=== PATIENT | male | born 1995 | race Two or more races ===

== ENCOUNTER 2016-07-25 18:17 | Emergency (ER) | payer OTHER ==
[~2016-07-25 18:17] MED LIST: CEPHALEXIN 500 MG CAP PO SCH; DOXYCYCLINE HYCLATE 100 MG CAP/TAB PO SCH; MUPIROCIN 2% 22 GM OINT TP SCH
[2016-07-25 18:22] VITALS: RESP 16
--- NOTE | 2016-07-25 18:41 | EDPHY ---
H & P Time Seen by Provider: 07/25/16 18:48 HPI/ROS: CHIEF COMPLAINT: Right forearm erythema and swelling HISTORY OF PRESENT ILLNESS: This patient is a 21 year old male with history of IVDA who presents to the Emergency Department with erythema and swelling to his right forearm that he attributes to "shooting up bad dope." He also complains of facial sores that have appeared over the past four days. He also complains of a sore throat and feeling mildly feverish over the past two days. No cough or shortness of breath. No vomiting or diarrhea. 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 He has no interest in going to the [facility] and states that he can detox on his own. REVIEW OF SYSTEMS: A ten point review of systems was performed and is negative with the exception of the items mentioned in the HPI. Past Medical/Surgical History: IVDA Social History: Lives in a room in a trailer. Uses IV meth and heroine. Cigarette smoker. Smoking Status: Current every day smoker Physical Exam: General Appearance: Alert. Vital signs reviewed. Afebrile. Eyes: Pupils equal and round, no conjunctival injection, no discharge. Anicteric. ENT, Mouth: Mucous membranes are dry, no oropharyngeal erythema or edema. Neck: Anterior cervical lymphadenopathy, neck is supple. Respiratory: Lungs are clear to auscultation; no wheezes, rales, or rhonchi. Cardiovascular: Regular rate and rhythm; no murmur, rub, or gallop. Gastrointestinal: Abdomen is thin, soft and nontender, no masses or organomegaly, bowel sounds normal. Skin: Pallor. Multiple scabbed and crusted facial lesions; no vesicles; primarily on the chin. Back: Nontender to palpation over the thoracolumbar spine. No CVAT. Extremities: No lower extremity edema, no calf tenderness or swelling. Right Forearm: Warmth and erythema distal to the antecubital fossa extending intermediate down the right arm. No fluctuance or abscess. Visible puncture guillen antecubital fossa right. No right axillary adenopathy. Neurological: Alert and oriented. Moving all four extremities easily and equally. 5/5 right toll service observer, biceps, triceps. Sensation intact to light touch both arms. Psychiatric: Restless. Cooperative. Constitutional: Initial Vital Signs Temperature (C) 36.8 C 07/25/16 18:19 Heart Rate 82 07/25/16 18:19 Respiratory Rate 16 07/25/16 18:19 Blood Pressure 126/72 H 07/25/16 18:19 O2 Sat (%) 92 07/25/16 18:19 O2 Delivery Mode Room Air Allergies/Adverse Reactions: No Known Allergies Allergy (Unverified 07/25/16 18:22) Home Medications: Medication Instructions Recorded Cephalexin [Keflex] 500 mg PO TID #20 cap 07/25/16 Doxycycline Hyclate [Doxycycline] 100 mg PO BID #13 cap 07/25/16 Mupirocin 2% [Bactroban 2%] 1 christine TOP BID #1 ointtube 07/25/16 Medical Decision Making Procedures: Procedure: Needle aspiration right forearm Right forearm with an area of firmness, not fluctuant. This area was ultrasounded to asses for abscess and it remained unclear whether or not there was a fluid collection. After verbal consent obtained from patient, the area was cleaned and an 18 guage needle was used to attempt aspiration. No purulence obtained. ED Course/Re-evaluation: Needle aspiration of right forearm attempted, no purulence obtained. Right forearm is clearly cellulitic. Doxycycline and Bactrim started, with the first dose provided in the emergency department and prescriptions filled in the hospital pharmacy. I do not think that he is septic. The lesions on his face appeared to be impetigo and he is given medication for this also. He is strongly encouraged to follow up at [facility]. We discussed cessation of IVDA. He tells me that he plans to stop using drugs but refuses all offers for help with rehabilitation. He was given information for narcotics anonymous and for the addiction recovery center. Differential Diagnosis: DDX includes but is not limited to abscess, cellulitis, bacteremia, sepsis, SBE , impetigo, contact dermatitis, and folliculitis. - Data Points Medications Given: Discontinued Medications Cephalexin HCl (Keflex) 500 mg PO EDNOW ONE PRN Reason: Protocol Stop: 07/25/16 19:31 Last Admin: 07/25/16 20:11 Dose: 500 mg Doxycycline Hyclate (Doxycycline Hyclate) 100 mg PO EDNOW ONE PRN Reason: Protocol Stop: 07/25/16 19:31 Last Admin: 07/25/16 20:11 Dose: 100 mg Departure - Departure Disposition: Home, Routine, Self-Care Clinical Impression: Right arm cellulitis, Impetigo Condition: Good Instructions: Cellulitis (ED), Impetigo (DC) Additional Instructions: 1. Take the full course of your antibiotics as prescribed. 2. Call the [facility] tomorrow to schedule a follow-up appointment as soon as possible for reevaluation. 3. Return to the Emergency Department with increased pain or swelling to your arm, streaking to your arm, high fever, discharge from your wound, or other serious concerns. Referrals: [facility] for Inf. Disease [Outside] - As per Instructions [facility] 24 Hours [Outside] - As per Instructions Narcotics Anonymous [Outside] - As per Instructions Prescriptions: Mupirocin 2% [Bactroban 2%] 1 christine TOP BID #1 ointtube Cephalexin [Keflex] 500 mg PO TID #20 cap Doxycycline Hyclate [Doxycycline] 100 mg PO BID #13 cap Report Scribed for: Rosa M Sierra Report Scribed by: Pricila Quan Date of Report: 07/25/16 Time of Report: 18:46 Physician Review and Approval Statement: 07/25/16 18:41 Portions of this note were transcribed by the medical doctor md/medical director. I, Dr. Rosa M Sierra, personally performed the history, physical exam, and medical decision- making; and confirmed the accuracy of the information in the transcribed note.
[2016-07-25] MEDS ORDERED: DOXYCYCLINE HYCLATE 100 MG CAP/TAB PO ONE (19:30)
[2016-07-25] MEDS ORDERED: CEPHALEXIN 500 MG CAP PO ONE (19:30)
[2016-07-25 20:13] VITALS: BP 128/38; PULSE 78; TEMP 98.1; O2SAT 93
== END 2016-07-25 20:13 | disposition home or self-care (01) ==
PROC: 0J9G3ZZ Drainage of Right Lower Arm Subcutaneous Tissue and Fascia, Percutaneous Approach (ICD-10-PCS; principal; 2016-07-25)
DX: L03.113 Cellulitis of right upper limb (principal); L01.00 Impetigo, unspecified; F17.210 Nicotine dependence, cigarettes, uncomplicated

== ENCOUNTER 2016-10-02 01:06 | Emergency (ER) | payer OTHER ==
[2016-10-02 01:18] VITALS: BP 153/95; PULSE 103; RESP 16; TEMP 98.6; O2SAT 95
--- NOTE | 2016-10-02 01:30 | EDPHY ---
H & P Smoking Status: Current every day smoker Time Seen by Provider: 10/02/16 01:21 HPI/ROS: CHIEF COMPLAINT: Left foot injury 2 weeks ago HISTORY OF PRESENT ILLNESS: 21-year-old male complaining left foot injury 2 weeks ago, continued pain. States that he stubbed his foot 2 weeks ago getting out of bed. He is able to bear weight. States that the 4th and 5th toes appear to be abnormally rotated. Intact skin. No discoloration. No paresthesia. PHYSICAL EXAM (Prior to examination, patient consented to physical exam, hands were washed and my usual and customary physical exam procedures followed) 1) GENERAL: Well-developed, well-nourished, alert and oriented. Appears to be in no acute distress. 2) HEAD: Normocephalic 3) HEENT: Pupils equal, round, reactive to light bilaterally. 4) LUNGS: Breathing comfortably. 5) MUSCULOSKELETAL: Left foot: Tender to palpation 4th and 5th toes with slight malrotation. No shortening. Normal coloration. No signs of infection. Capillary refill is brisk to all toes. 6) SKIN: intact no signs of infection 7) VASCULAR: DP,PT pulses and cap refill present and brisk DIFFERENTIAL DIAGNOSIS: in no particular order including but not limited to fracture, sprain, compartment syndrome Xray of the Left foot interpreted by myself: 4th toe proximal phalanx fracture Procedure: Splint A Postop shoe splint was applied by ER insulator technician. After application of the splint I returned and re-examined the patient. The splint was adequately immobilizing the joint and distal to the splint the patient's circulation and sensation were intact. Patient shows no signs of compartment syndrome. Was given orthopedic precautions. (Walter Worley) Constitutional: Initial Vital Signs Temperature (C) 37 C 10/02/16 01:15 Heart Rate 103 H 10/02/16 01:15 Respiratory Rate 16 10/02/16 01:15 Blood Pressure 153/95 H 10/02/16 01:15 O2 Sat (%) 95 10/02/16 01:15 O2 Delivery Mode Room Air Allergies/Adverse Reactions: No Known Allergies Allergy (Verified 10/02/16 01:18) Home Medications: Medication Instructions Recorded NK [No Known Home Meds] 10/02/16 MDM/Departure - [facility] ED Course/Re-evaluation: Re-evaluation with serial examinations. Discussed his imaging results with him. No signs of infection. No indication for emergent podiatry orthopedic consultation. However I recommend he follow up with Podiatry on outpatient basis and have provided him with this referral information. He has been informed that because of his delay in seeking medical attention, namely 2 week delay in seeking medical attention, this may result in chronic, permanent deformity and/or disability. (Walter Worley) PHYSICIAN DOCUMENTATION: The patient was evaluated and managed by the Physician Data Capture Clerk. My co- signature indicates that I have reviewed this chart and I agree with the findings and plan of care as documented. I am the secondary supervising physician. (Radha Anderson) - Depart Disposition: Home, Routine, Self-Care Clinical Impression: Toe fracture, left Qualifiers: Encounter type: initial encounter Toe: lesser toe Fracture type: closed Phalanx : proximal Fracture alignment: nondisplaced Qualified Code(s): S92.515A - Nondisplaced fracture of proximal phalanx of left lesser toe(s), initial encounter for closed fracture Condition: Good Instructions: Toe Fracture (ED) Additional Instructions: Return to the ER immediately if you experience discoloration, have worsening pain, numbness, tingling, or any other symptoms that concern you. If you received x-rays in the emergency department today, be advised, that ligamentous , tendon, muscular, and other non-bony injury cannot be fully ruled out. Referrals: Vasquez Caicedo DPM [Doctor of Podiatric Medicine] - 2-3 days, call for appt.
== END 2016-10-02 01:52 | disposition home or self-care (01) ==
DX: S92.515A Nondisplaced fracture of proximal phalanx of left lesser toe(s), initial encounter for closed fracture (principal); F17.200 Nicotine dependence, unspecified, uncomplicated; W22.8XXA Striking against or struck by other objects, initial encounter; Y93.89 Activity, other specified
CPT/HCPCS: L3260

== ENCOUNTER 2017-03-23 15:31 | Emergency (ER) | payer OTHER ==
[2017-03-23 15:40] VITALS: BP 101/69; PULSE 125; RESP 16; TEMP 98.4; O2SAT 96
== END 2017-03-23 17:11 | disposition left against medical advice (07) ==
DX: Z53.21 Procedure and treatment not carried out due to patient leaving prior to being seen by health care provider (principal)

== ENCOUNTER 2017-03-23 21:33 | Emergency (ER) | payer OTHER ==
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
[2017-03-23 21:55] LABS: % IMMATURE GRANULYOCYTES 1.1 % (0.0-1.1); ABSOLUTE IMMATURE GRANULOCYTES 0.14 10^3/uL (0.00-0.10); ADD DIFF? NO; ADD MORPH? NO; ADD SCAN? NO; ATYPICAL LYMPHOCYTE FLAG 10 (0-99); FRAGMENT RBC FLAG 0 (0-99); HEMATOCRIT 44.2 % (40.0-51.0); HEMOGLOBIN 15.1 g/dL (13.7-17.5); LEFT SHIFT FLG 10 (0-99); LIPEMIA HEMOLYSIS FLAG 90 (0-99); MEAN CELL HEMOGLOBIN CONCENTR. 34.2 g/dL (32.4-36.7); MEAN CELL VOLUME 90.8 fL (81.5-99.8); MEAN PLATELET VOLUME 9.4 fL (8.7-11.7); PLATELET CLUMPS FLAG 0 (0-99); PLATELET COUNT 350 10^3/uL (150-400); RED BLOOD CELL COUNT 4.87 10^6/uL (4.40-6.38); RED CELL DISTRIBUTION WIDTH 13.2 % (11.5-15.2)
[2017-03-23 22:03] LABS: INR 1.11 (0.83-1.16); PROTIME(PATIENT) 14.2 SEC (12.0-15.0)
[2017-03-23 22:04] LABS: APTT 30.3 SEC (23.0-38.0)
[2017-03-23 22:07] LABS: ANION GAP 29 mEq/L (8-16); CALCIUM 10.6 mg/dL (8.5-10.4); CARBON DIOXIDE 18 mEq/l (22-31); CHLORIDE 90 mEq/L (97-110); CREATININE 2.8 mg/dL (0.7-1.3); ETHANOL SERUM < 10 mg/dL (0-10); GLOMERULAR FILTRATION RATE 28; GLUCOSE 76 mg/dL (70-100); POTASSIUM 5.2 mEq/L (3.5-5.2); SODIUM 137 mEq/L (134-144)
[2017-03-23] MEDS ORDERED: NS 1,000 ML IV ONE (22:14)
[2017-03-23] MEDS: NS 1,000 ML IV ONE (23:50)
[2017-03-24] MEDS: NS 1,000 ML IV ONE
[2017-03-24 00:50] VITALS: RESP 16; TEMP 98.2; O2SAT 96
[2017-03-24 01:18] LABS: CK-MB INTERPRETATION NEGATIVE (NEGATIVE)
[2017-03-24] MEDS ORDERED: NS 1,000 ML IV ONE ×2 (03:40→23:00)
[2017-03-24 05:21] VITALS: BP 93/54; PULSE 84
[2017-03-24] MEDS ORDERED: IOPAMIDOL (ISOVUE 370) 100 ML BTL IV ONE (06:15)
[2017-03-24] MEDS ORDERED: OXYCODONE/APAP 5/325 TAB PO ONE (07:13)
== END 2017-03-24 07:35 | disposition home or self-care (01) ==
DX: S12.001A Unspecified nondisplaced fracture of first cervical vertebra, initial encounter for closed fracture (principal); S02.19XA Other fracture of base of skull, initial encounter for closed fracture; E86.9 Volume depletion, unspecified; W19.XXXA Unspecified fall, initial encounter; F17.200 Nicotine dependence, unspecified, uncomplicated
CPT/HCPCS: 82947-QW; G0480; Q9967

== ENCOUNTER 2017-08-19 21:30 | Emergency (ER) | payer OTHER ==
--- NOTE | 2017-08-19 21:45 | EDPHY ---
H & P Source: Patient Exam Limitations: No limitations - Personal History Tetanus Vaccine Date: < 10 YEARS - Medical/Surgical History Hx Asthma: No Hx Chronic Respiratory Disease: No Hx Diabetes: No Hx Cardiac Disease: No Hx Renal Disease: No Hx Cirrhosis: No Hx Alcoholism: No Hx HIV/AIDS: No Hx Splenectomy or Spleen Trauma: No Other PMH: DRUG ABUSE - Family History Significant Family History: No pertinent family hx - Social History Smoking Status: Current every day smoker HPI/ROS: CHIEF COMPLAINT: Altered mental status HISTORY OF PRESENT ILLNESS: Patient is a 22-year-old man known to our department for polysubstance abuse as well as previous cervical spine fracture. [facility]. He was combative when confronted by police and needed to be restrained. He was given ketamine 300 mg IM by EMS and is now disassociated. He told 1 of the officers that he had used drugs but it is unclear what type. REVIEW OF SYSTEMS: Unable to obtain secondary to condition EXAM: GENERAL: Sedated, afebrile HEAD: Atraumatic, normocephalic. EYES: Pupils equal round and reactive to light, ENT: oropharynx clear without exudates. Moist mucous membranes. NECK: Normal range of motion, supple without lymphadenopathy or JVD. LUNGS: Breath sounds clear to auscultation bilaterally and equal. No wheezes rales or rhonchi. HEART: Regular rate and rhythm without murmurs, rubs or gallops. ABDOMEN: Soft, nontender, normoactive bowel sounds. No guarding, no rebound. No masses appreciated. BACK: No CVA tenderness, no spinal tenderness, step-offs or deformities EXTREMITIES: Normal range of motion, no pitting or edema. No clubbing or cyanosis. NEUROLOGICAL: Moving all extremities spontaneously, Cranial nerves II through XII grossly intact. 5/5 strength, normal movement in all extremities, normal sensation PSYCH: Unable to cooperate SKIN: Warm, dry, normal turgor, no visible rashes or lesions. (Alberto Harris) Constitutional: Initial Vital Signs Temperature (C) 36.9 C 08/19/17 22:18 Heart Rate 106 H 08/19/17 22:18 Respiratory Rate 16 08/19/17 22:18 Blood Pressure 179/114 H 08/19/17 22:18 O2 Sat (%) 93 08/19/17 22:18 O2 Delivery Mode Room Air Allergies/Adverse Reactions: No Known Allergies Allergy (Verified 10/02/16 01:18) Home Medications: Medication Instructions Recorded NK [No Known Home Meds] 10/02/16 ED Course/Re-evaluation: 1227: Patient is acutely agitated and screaming in the emergency room. I have ordered additional 5 mg IM Haldol. Additionally a 1 L normal saline for IV fluid bolus. 0157: Patient again is acutely agitated screaming thrashing around in bed. For his safety in our safe to have ordered 10 mg IM Geodon. 0700AM: Patient signed over to Dr. Vasquez Campos at 7am shift Change. (Deng Padgett) Patient's care was signed over to me by Dr. Padgett at 7:00 a.m.. Re- evaluation 7:25 a.m.. Patient is sleeping on a mattress on the floor. Vital signs are stable. Labs are reviewed. Patient's toxicology screen positive for methamphetamine. Patient is awaiting sobriety and then will be re-evaluated by me Re-evaluation at 2:40 p.m. patient is up and walking and talking. He stable. Denies suicidal or homicidal ideation. He and I discussed laboratory evaluation and treatment plan including criteria for return importance of follow -up and further evaluation. He expresses understanding and agreement (Vasquez Campos) Differential Diagnosis: Polysubstance abuse. Patient was agitated and combative. However with sobriety he denies suicide or homicide ideation (Vasquez Campos) - Data Points Laboratory Results: Laboratory Results 08/19/17 22:00 08/19/17 22:00 Medications Given: Discontinued Medications Haloperidol Lactate (Haldol Injection) 5 mg IVP EDNOW ONE Stop: 08/19/17 22:51 Last Admin: 08/19/17 23:00 Dose: 5 mg Haloperidol Lactate (Haldol Injection) 5 mg IVP EDNOW ONE Stop: 08/20/17 00:27 Last Admin: 08/20/17 01:05 Dose: Not Given Haloperidol Lactate (Haldol Injection) 5 mg IM EDNOW ONE Stop: 08/20/17 00:27 Last Admin: 08/20/17 00:30 Dose: 5 mg Sodium Chloride (Ns) 1,000 mls @ 0 mls/hr IV ONCE ONE; Wide Open PRN Reason: Protocol Stop: 08/19/17 22:52 Last Admin: 08/19/17 23:00 Dose: 1,000 mls Sodium Chloride (Ns) 1,000 mls @ 0 mls/hr IV ONCE ONE PRN Reason: Wide Open Stop: 08/20/17 00:27 Last Admin: 08/20/17 00:30 Dose: 1,000 mls Ziprasidone (Geodon) 20 mg IM Q4HRS PRN PRN Reason: Agitation Stop: 02/16/18 01:55 Last Admin: 08/20/17 02:12 Dose: 20 mg Departure - Departure Disposition: Home, Routine, Self-Care Clinical Impression: Polysubstance abuse Condition: Good Instructions: Polysubstance Abuse (ED) Additional Instructions: Return for worsening symptoms including thoughts of harming yourself or others. Referrals: Patient,NotPresent [Primary Care Provider] - As per Instructions [facility] [Outside] - 2-3 days, call for appt.
[2017-08-19 22:41] VITALS: TEMP 98.4
[2017-08-19] MEDS ORDERED: HALOPERIDOL LACT 5 MG/ML INJ IVP ONE (22:50)
[2017-08-19] MEDS ORDERED: NS 1,000 ML IV ONE (22:51)
[2017-08-19 23:01] LABS: PLATELET COUNT 277 10^3/uL (150-400)
[2017-08-20] MEDS ORDERED: NS 1,000 ML IV ONE (00:26)
[2017-08-20] MEDS ORDERED: HALOPERIDOL LACT 5 MG/ML INJ IVP ONE (00:26)
[2017-08-20] MEDS ORDERED: HALOPERIDOL LACT 5 MG/ML INJ IM ONE (00:26)
[2017-08-20] MEDS ORDERED: HALOPERIDOL LACT 5 MG/ML INJ ONE (00:27)
[2017-08-20] MEDS ORDERED: ZIPRASIDONE MESYLATE 20 MG VIAL IM PRN (01:56)
[2017-08-20 15:30] VITALS: BP 117/67; PULSE 61; RESP 18; O2SAT 95
== END 2017-08-20 15:52 | disposition home or self-care (01) ==
LOC: EDUNIT#
DX: F19.10 Other psychoactive substance abuse, uncomplicated (principal); E86.9 Volume depletion, unspecified; F17.200 Nicotine dependence, unspecified, uncomplicated
CPT/HCPCS: 80305; 96374; G0480; J1630; J3486

== ENCOUNTER 2017-08-29 01:33 | Emergency (ER) | payer OTHER ==
--- NOTE | 2017-08-29 01:37 | EDPHY ---
H & P HPI/ROS: Chief Complaint: Cough, sore throat HPI: 22-year-old homeless male approached and ambulance this morning and told them that he has been having a cough and sore throat and is concerned he might have pneumonia. Patient states he has been having symptoms about 3 or 4 days. He has had a lot of upper respiratory congestion. Loss of throat clearing. Started coughing yesterday. States that he thinks that might be streaks of blood. Some subjective chills. He does admit to methamphetamine use within the last 12 hr. No substernal chest pain. No fainting. ROS: 10 point Review of Systems is negative except as noted in the HPI. PMH: Denies Social History: Positive smoking, no alcohol, chronic methamphetamine abuse Family History: non-contributory Physical Exam: Gen: Awake, Alert, No Distress HEENT: Nose: no rhinorrhea Eyes: PERRLA, EOMI Mouth: Moist mucosa no oral pharyngeal exudate, there is mild erythema without edema. Uvula is midline. Neck: Supple, no JVD Chest: nontender, lungs clear to auscultation Heart: S1, S2 normal, no murmur Abd: Soft, non-tender, no guarding Back: no CVA tenderness, no midline tenderness Ext: no edema, non-tender Skin: no rash Neuro: CN II-XII intact, Sensation grossly intact, Strength 5/5 in bilateral upper and lower extremities - Personal History Tetanus Vaccine Date: < 10 YEARS - Medical/Surgical History Hx Asthma: No Hx Chronic Respiratory Disease: No Hx Diabetes: No Hx Cardiac Disease: No Hx Renal Disease: No Hx Cirrhosis: No Hx Alcoholism: No Hx HIV/AIDS: No Hx Splenectomy or Spleen Trauma: No Other PMH: DRUG ABUSE - Social History Smoking Status: Current every day smoker Constitutional: Initial Vital Signs Temperature (C) 37.9 C 08/29/17 01:35 Heart Rate 122 H 08/29/17 01:35 Respiratory Rate 20 08/29/17 01:35 Blood Pressure 127/85 H 08/29/17 01:35 O2 Sat (%) 92 08/29/17 01:35 O2 Delivery Mode Room Air Allergies/Adverse Reactions: No Known Allergies Allergy (Verified 08/29/17 01:35) Home Medications: Medication Instructions Recorded Doxycycline Hyclate 100 mg PO BID #20 capsule 08/29/17 Medical Decision Making ED Course/Re-evaluation: Patient is presenting complaining of difficulty breathing. Wide try to listen to his chest he is taking very short shallow breaths and states that he cannot take a full breath. However when I am speaking with him getting history he is able to speak in very long drawn out sentences and is taking full breaths without any difficulty. His lungs are completely clear. He is not hypoxemic. He is tachycardic however he has used methamphetamine recently. He is otherwise in no distress. He is ambulating without any difficulty. There is a left lower lobe infiltrate on his chest x-ray. Will start him on doxycycline. Refer for follow up with [facility]. - Data Points Medications Given: Discontinued Medications Ibuprofen (Motrin) 800 mg PO EDNOW ONE Stop: 08/29/17 02:14 Last Admin: 08/29/17 02:14 Dose: 800 mg Departure - Departure Disposition: Home, Routine, Self-Care Clinical Impression: Pneumonia Condition: Good Instructions: Pneumonia (ED) Additional Instructions: Follow up with [facility] in 2-3 days for re-evaluation. Please take her full course of antibiotics. Return to the emergency depart for increasing difficulty breathing, uncontrolled fevers or chills, nausea or vomiting, or any other concerns. Referrals: [facility],. [Clinic] - As per Instructions Prescriptions: Doxycycline Hyclate 100 mg PO BID #20 capsule
[2017-08-29 01:38] VITALS: RESP 20
[2017-08-29] MEDS ORDERED: IBUPROFEN 800 MG TAB PO ONE ×2 (02:12→02:13)
[2017-08-29] MEDS ORDERED: DOXYCYCLINE HYCLATE 100 MG CAP/TAB PO ONE (02:27)
[2017-08-29 02:41] VITALS: BP 135/80; PULSE 115; TEMP 98.8; O2SAT 95
== END 2017-08-29 02:41 | disposition home or self-care (01) ==
LOC: EDUNIT#
DX: J18.9 Pneumonia, unspecified organism (principal); F17.200 Nicotine dependence, unspecified, uncomplicated

== ENCOUNTER 2018-03-20 10:35 | Emergency (ER) | payer OTHER ==
--- NOTE | 2018-03-20 11:27 | EDPHY ---
H & P Time Seen by Provider: 03/20/18 10:44 HPI/ROS: HPI Heroin withdrawal. 22-year-old male with [place] police for medical clearance. This patient has been using heroin. Last use was 2 days ago. He is currently homeless. He was found in the [email or web address] and brought to the emergency department by police for medical clearance. He denies any history of trauma. He has had some nausea and chills typical of heroin withdrawal. He has no other complaint. ROS: Constitutional: No fever. As above. Eyes: No discharge. No changes in vision. ENT: No sore throat. No nasal congestion or rhinorrhea. Respiratory: No cough. No shortness of breath. Cardiac: No chest pain, no palpitations. Gastrointestinal: No abdominal pain, no vomiting, no diarrhea. As above. Genitourinary: No hematuria. No dysuria or increased frequency with urination. Musculoskeletal: No back pain. No neck pain. No myalgias or arthralgias. Skin: No rashes. Neurological: No headache. No focal weakness or altered sensation. Past medical history: Heroin abuse. Social history: Smokes cigarettes occasionally. No alcohol. As above. Homeless. Physical Exam: General Appearance: Alert, no distress. This patient is responding to questions appropriately and in full sentences. This patient appears well- hydrated and well-nourished. Head: Normocephalic atraumatic. Eyes: Pupils equal and round no pallor or injection. No lid edema, erythema or injection. Respiratory: There are no retractions, lungs are clear to auscultation with good air movement bilaterally. Cardiovascular: Regular rate and rhythm. No murmur. Gastrointestinal: Abdomen is soft and nontender, no masses, bowel sounds normal. No focal tenderness at McBurney's point. No Jo sign. Neurological: Motor sensory function is grossly intact. Cranial nerves are normal. Gait is normal. Skin: Warm and dry, no rashes. Musculoskeletal: Neck is supple and nontender. Extremities are symmetrical. All joints range without pain or impingement. Psychiatric: No agitation. No depression. Database: EKG: Imaging: Procedures: Emergency department course: Vital signs reviewed and are normal. 11:30 a.m., the patient was medically cleared for discharge with [employer]. Follow-up and return to emergency department precautions reviewed with him. All of his questions were answered. He was discharged from the emergency department in good condition with [facility]. Differential Diagnosis: The differential diagnosis on this patient includes but is not limited to heroin abuse, heroin withdrawal. Traumatic injury, serious bacterial infection unlikely. This represents a partial list of diagnoses considered. These considerations are based on history, physical exam, past history, reassessment and diagnostic testing. Smoking Status: Current every day smoker Constitutional: Initial Vital Signs Temperature (C) 37.0 C 03/20/18 10:38 Heart Rate 78 03/20/18 10:38 Respiratory Rate 16 03/20/18 10:38 Blood Pressure 128/78 H 03/20/18 10:38 O2 Sat (%) 97 03/20/18 10:38 O2 Delivery Mode Room Air Allergies/Adverse Reactions: No Known Allergies Allergy (Verified 08/29/17 01:35) Home Medications: Medication Instructions Recorded NK [No Known Home Meds] 02/21/18 Departure - Departure Disposition: Law Enforcement/Court/Alf Clinical Impression: Heroin abuse, Heroin withdrawal Condition: Good Instructions: Narcotic Abuse (ED) Additional Instructions: Pt is MEDICALLY CLEARED Read and follow provided instructions. Follow-up with your primary care physician in 1-2 days for re-evaluation. Return to the emergency department for worsening symptoms or other serious concerns. Referrals: [facility],. [Clinic] - As per Instructions
[2018-03-20 11:29] VITALS: BP 135/80
== END 2018-03-20 11:52 ==
LOC: EDUNIT#
DX: F11.23 Opioid dependence with withdrawal (principal); F17.200 Nicotine dependence, unspecified, uncomplicated; Z59.0 Homelessness

== ENCOUNTER 2018-05-09 18:08 | Emergency (ER) | payer OTHER ==
--- NOTE | 2018-05-09 18:13 | EDPHY ---
H & P Time Seen by Provider: 05/09/18 18:11 HPI/ROS: CHIEF COMPLAINT: Heroin overdose HISTORY OF PRESENT ILLNESS: The patient is a 22-year-old man who was found in the bathroom at a [employer] with pinpoint pupils and unresponsive and a syringe next to him. [employer] called 911 because the patient had been in the bathroom for over an hour. When paramedics arrived they administered 2 g Narcan intranasally. The patient woke up soon thereafter. He is now on pleasant and minimally cooperative. He is not combative. His pupils of normalized. He does report a history of opiate abuse and familiarity with Narcan. Severity: Moderate Modifying factors: The improved Narcan REVIEW OF SYSTEMS: Unable to obtain secondary to condition EXAM: GENERAL: Disheveled, thin HEAD: Atraumatic, normocephalic. EYES: Pupils equal round and reactive to light, extraocular movements intact, sclera anicteric, conjunctiva are normal. ENT: TMs normal, nares patent, oropharynx clear without exudates. Moist mucous membranes. NECK: Normal range of motion, supple without lymphadenopathy or JVD. LUNGS: Breath sounds clear to auscultation bilaterally and equal. No wheezes rales or rhonchi. HEART: Regular rate and rhythm without murmurs, rubs or gallops. ABDOMEN: Soft, nontender, normoactive bowel sounds. No guarding, no rebound. No masses appreciated. BACK: No CVA tenderness, no spinal tenderness, step-offs or deformities EXTREMITIES: Normal range of motion, no pitting or edema. No clubbing or cyanosis. NEUROLOGICAL: Cranial nerves II through XII grossly intact. Normal speech, normal gait. 5/5 strength, normal movement in all extremities, normal sensation , normal reflexes PSYCH: Unhappy, minimally cooperative SKIN: Warm, dry, normal turgor, no visible rashes or lesions. Source: Patient Exam Limitations: No limitations - Personal History Tetanus Vaccine Date: < 10 YEARS - Medical/Surgical History Hx Asthma: No Hx Chronic Respiratory Disease: No Hx Diabetes: No Hx Cardiac Disease: No Hx Renal Disease: No Hx Cirrhosis: No Hx Alcoholism: No Hx HIV/AIDS: No Hx Splenectomy or Spleen Trauma: No Other PMH: DRUG ABUSE - Family History Significant Family History: No pertinent family hx - Social History Smoking Status: Current every day smoker Alcohol Use: Occasionally Drug Use: Heroin Constitutional: Initial Vital Signs Heart Rate 94 05/09/18 18:08 Respiratory Rate 16 05/09/18 18:08 Blood Pressure 132/97 H 05/09/18 18:08 O2 Sat (%) 95 05/09/18 18:08 O2 Delivery Mode Room Air Allergies/Adverse Reactions: No Known Allergies Allergy (Verified 08/29/17 01:35) Home Medications: Medication Instructions Recorded NK [No Known Home Meds] 02/21/18 Medical Decision Making ED Course/Re-evaluation: 7:15 p.m. the patient is better for over an hour. He is somewhat belligerent. He is unhappy with his treatment and having received Narcan. He does not show any signs of re-sedation. He does not wish to be here. Will discharge him at this time. Differential Diagnosis: Partial list of the Differential diagnosis considered include but were not limited to; opiate abuse, polysubstance abuse and although unlikely based on the history and physical exam, I also considered head injury, infection. Departure - Departure Disposition: Home, Routine, Self-Care Clinical Impression: Accidental heroin overdose Qualifiers: Encounter type: initial encounter Qualified Code(s): T40.1X1A - Poisoning by heroin, accidental (unintentional), initial encounter Condition: Fair Instructions: Opioid Use Disorder (ED) Additional Instructions: Stop using drugs. Seek emergency help if you or someone you know overdoses Referrals: Patient,NotPresent [Unknown] - As per Instructions [facility],. [Clinic] - As per Instructions
[2018-05-09 19:37] VITALS: BP 128/78
== END 2018-05-09 19:37 | disposition home or self-care (01) ==
LOC: EDUNIT#
DX: T40.1X1A Poisoning by heroin, accidental (unintentional), initial encounter (principal); F17.200 Nicotine dependence, unspecified, uncomplicated

== ENCOUNTER 2018-07-20 22:07 | Emergency (ER) | payer OTHER ==
--- NOTE | 2018-07-20 23:23 | EDPHY ---
H & P Stated Complaint: narcan wake-up Time Seen by Provider: 07/20/18 22:51 HPI/ROS: HPI The patient presents with overdose of heroin, brought in by ambulance from a restaurant where he received Narcan 2 mg IV and also an intranasal dose. Now awake and alert. The patient says that he had been off of heroin for the last 4 days and was using meth intermittently. However, because of withdrawal symptoms today he bought 2 dollars worth of heroin and shot at into his vein tonight. He said he was getting sleepy in nodding off and then remembers awaking in the ambulance. The patient has visits from May 09 and June 02 for similar overdose is requiring Narcan. He is homeless and camps. He does have health insurance and has a mother in [place] though he is not allowed to stay with her. He is interested in treatment programs though does not want to be an inpatient. He has tried Suboxone on the street and feels that it is affective and would like to get into a clinic that prescribes this. He does not have any suicidal ideation.. REVIEW OF SYSTEMS 10 systems were reviewed and negative with the exception of the elements mentioned in the history of present illness. PMHx: No diabetes, no hypertension Soc Hx: Homeless, IV heroin and methamphetamine use PHYSICAL General Appearance: Alert, no distress Eyes: Pupils equal and round no pallor or injection ENT, Mouth: Mucous membranes moist Respiratory: There are no retractions, lungs are clear to auscultation Cardiovascular: Regular rate and rhythm Gastrointestinal: Abdomen is soft and non-tender, no masses, bowel sounds normal Neurological: A&O, moves all extremities Skin: Warm and dry, no rashes Musculoskeletal: Neck is supple non tender Extremities: symmetrical, full range of motion Psychiatric: Patient is oriented X 3, there is no agitation Source: Patient, EMS Exam Limitations: No limitations - Personal History Current Tetanus Diphtheria and Acellular Pertussis (TDAP): Yes Tetanus Vaccine Date: < 10 YEARS - Medical/Surgical History Hx Asthma: No Hx Chronic Respiratory Disease: No Hx Diabetes: No Hx Cardiac Disease: No Hx Renal Disease: No Hx Cirrhosis: No Hx Alcoholism: No Hx HIV/AIDS: No Hx Splenectomy or Spleen Trauma: No Other PMH: DRUG ABUSE - Social History Smoking Status: Current every day smoker Constitutional: Initial Vital Signs Temperature (C) 36.7 C 07/20/18 22:08 Heart Rate 94 07/20/18 22:08 Respiratory Rate 16 07/20/18 22:08 Blood Pressure 124/69 H 07/20/18 22:08 O2 Sat (%) 94 07/20/18 22:08 O2 Delivery Mode Room Air Allergies/Adverse Reactions: No Known Allergies Allergy (Verified 07/20/18 22:08) Home Medications: Medication Instructions Recorded clonIDINE [Catapres (*)] 0.2 mg PO BID PRN #15 tab 07/20/18 Medical Decision Making Differential Diagnosis: 23-year-old homeless male with history of heroin abuse and overdose presents with altered mental status improved with Narcan in the setting of heroin use. Here, he is awake and alert with normal vital signs. He does admit to methamphetamine use as well. Plan for referral to case management as he seems open to Suboxone. I will give him a prescription for clonidine to help with withdrawal symptoms. He is motivated to stop using though thinks he can do it on his own. He does not have any suicidal ideations. I have [facility], however he declines. Departure - Departure Disposition: Home, Routine, Self-Care Clinical Impression: Homelessness Heroin overdose Qualifiers: Encounter type: initial encounter Injury intent: accidental or unintentional Qualified Code(s): T40.1X1A - Poisoning by heroin, accidental (unintentional), initial encounter Condition: Good Instructions: Opioid Withdrawal (ED), Opioid Use Disorder (ED) Referrals: [facility],. [Clinic] - As per Instructions Prescriptions: clonIDINE [Catapres (*)] 0.2 mg PO BID PRN #15 tab PRN Reason: withdrawal symptoms
[2018-07-20 23:24] VITALS: BP 123/74
== END 2018-07-20 23:26 | disposition home or self-care (01) ==
LOC: EDUNIT#
DX: T40.1X1A Poisoning by heroin, accidental (unintentional), initial encounter (principal); Y92.511 Restaurant or cafe as the place of occurrence of the external cause; Y93.9 Activity, unspecified; Z59.0 Homelessness